=== PATIENT | male | born 1940 | race Caucasian/White ===

== ENCOUNTER → 2021-06-13 | Outpatient (CLI) | payer OTHER, BC | LOC: HYPER 08:54 | PROVIDERS: ATTEND Emergency Medicine | DX: T81.31XA Disruption of external operation (surgical) wound, not elsewhere classified, initial encounter (principal); S01.00XA Unspecified open wound of scalp, initial encounter; E11.622 Type 2 diabetes mellitus with other skin ulcer; L98.496 Non-pressure chronic ulcer of skin of other sites with bone involvement without evidence of necrosis; E66.9 Obesity, unspecified; I10 Essential (primary) hypertension; Z68.30 Body mass index [BMI] 30.0-30.9, adult; X58.XXXA Exposure to other specified factors, initial encounter; Y93.89 Activity, other specified; Y92.89 Other specified places as the place of occurrence of the external cause; Y99.8 Other external cause status; Y92.238 Other place in hospital as the place of occurrence of the external cause; Y83.8 Other surgical procedures as the cause of abnormal reaction of the patient, or of later complication, without mention of misadventure at the time of the procedure ==

== ENCOUNTER → 2021-07-11 | Outpatient (CLI) | payer OTHER, BC | LOC: HYPER 11:16 | PROVIDERS: ATTEND Emergency Medicine | DX: T81.31XD Disruption of external operation (surgical) wound, not elsewhere classified, subsequent encounter (principal); S01.00XD Unspecified open wound of scalp, subsequent encounter; E11.622 Type 2 diabetes mellitus with other skin ulcer; L98.496 Non-pressure chronic ulcer of skin of other sites with bone involvement without evidence of necrosis; E66.9 Obesity, unspecified; I10 Essential (primary) hypertension; Z68.30 Body mass index [BMI] 30.0-30.9, adult; X58.XXXD Exposure to other specified factors, subsequent encounter; Y83.8 Other surgical procedures as the cause of abnormal reaction of the patient, or of later complication, without mention of misadventure at the time of the procedure ==